=== PATIENT | female | born 1990 | race African-American/Black ===

== ENCOUNTER 2018-11-16 16:19 | Emergency (ER) | payer BC, OTHER ==
--- NOTE | 2018-11-16 16:26 | PDOC ---
Rapid Medical Evaluation Time Seen by Provider: 11/16/18 16:24 Medical Evaluation: Allergies Allergy/AdvReac Type Severity Reaction Status Date / Time No Known Allergies Allergy Verified 03/11/15 08:41 11/16/18 16:25 Patient c/o: 2 nd toe pain x 2 days, dropped can on toe Patient on brief exam: no edema or deformity , tender to dip joint of rt 2 nd toe Patient ordered for: toe xray patient to proceed to the ED Discharge Disposition - Diagnosis Toe pain Qualifiers: Laterality: right Qualified Code(s): M79.674 - Pain in right toe(s) - Discharge Dispostion Disposition: HOME Condition at time of disposition: Stable - Referrals Referrals: Boogie Leroy MD [Staff Physician] - Leonardo Emmanuel MD [Primary Care Provider] - - Patient Instructions Additional Instructions: Your x-ray today is negative. Wear hard sole shoe to keep your toe from bending. Take Tylenol or Motrin as directed by manufacturers instructions for pain. Return to the emergency department for new or worsening symptoms. Thank you very much for choosing us to provide your emergent health care needs. - Post Discharge Activity
[2018-11-16 16:33] VITALS: BP 124/68; PULSE 83; TEMP 98.7; BMI 35.4
--- NOTE | 2018-11-16 17:08 | PDOC ---
History of Present Illness - General Chief Complaint: Pain Stated Complaint: TOE INJURY R/FOOT Time Seen by Provider: 11/16/18 16:24 History Source: Patient Exam Limitations: No Limitations - History of Present Illness Initial Comments: 11/16/18 17:26 HISTORY OF PRESENT ILLNESS: This 28-year-old woman presents emergency department for evaluation of right second toe pain status post trauma 2 days prior. Patient reports she tried to pull a can of beans out of the cabinet when it fell approximately 6 feet striking her on the right second toe. She reports has been able to walk on it but has had increased pain over 2 days. Pain worsens with flexion and extension of the toes. No recent travel or sick contacts. PAST MEDICAL HISTORY: Denies past medical history SURGICAL HISTORY: Denies ALLERGIES: No known drug allergies REVIEW OF SYSTEMS General/Constitutional: Denies fever or chills. Denies weakness, weight change. HEENT: Denies change in vision. Denies ear pain or discharge. Denies sore throat. Cardiovascular: Denies chest pain or shortness of breath. Respiratory: Denies cough, wheezing, or hemoptysis. Gastrointestinal: Denies nausea, vomiting, diarrhea or constipation. Denies rectal bleeding. Genitourinary: Denies dysuria, frequency, or change in urination. Musculoskeletal: see HPI Skin and breasts: Denies rash or easy bruising. Neurologic: Denies headache, vertigo, loss of consciousness, or loss of sensation. Psychiatric: Denies depression or anxiety. Endocrine: Denies increased thirst. Denies abnormal weight change. Hematologic/Lymphatic: Denies anemia, easy bleeding, or history of blood clots. Allergic/Immunologic: Denies hives or skin allergy. Denies latex allergy. PHYSICAL EXAM General Appearance: Well-appearing, appropriately dressed. No apparent distress , no intoxication. Musculoskeletal/Extremities: Normal inspection. FROM of all extremities, normal capillary refill. Right second toe distal phalanx tender to palpation. No crepitus, deformity or step-off is present. Skin color is within normal limits. Neurovascularly intact. Integumentary: Appropriate color, dry, warm. No cyanosis, erythema, jaundice or rash Neurologic: sales assistants and salespersons II-XII intact. Fully oriented, alert. Appropriate mood/affect. Motor strength 5/5. No appreciable EOM palsy, facial droop or sensory deficit. Past History - Past Medical History Allergies/Adverse Reactions: Allergies Allergy/AdvReac Type Severity Reaction Status Date / Time No Known Allergies Allergy Verified 11/16/18 16:31 Home Medications: Ambulatory Orders Azithromycin 500 mg PO DAILY #5 tablet 03/11/15 Asthma: No Cancer: No Cardiac Disorders: No Diabetes: No HTN: No Seizures: No Thyroid Disease: No - Reproductive History Spontaneous : 2 - Suicide/Smoking/Psychosocial Hx Smoking Status: No Smoking History: Never smoked Have you smoked in the past 12 months: No Number of Cigarettes Smoked Daily: 0 Hx Alcohol Use: No Drug/Substance Use Hx: No Substance Use Type: None Hx Substance Use Treatment: No *Physical Exam - Vital Signs Last Vital Signs Temp Pulse Resp BP Pulse Ox 98.7 F 83 16 124/68 99 11/16/18 16:31 11/16/18 16:31 11/16/18 16:31 11/16/18 16:31 11/16/18 16:31 Medical Decision Making - Medical Decision Making 11/16/18 17:24 A/P: 28-year-old woman with atraumatic right second toe pain for 2 days X-rays performed by E-no acute fractures or dislocations present. Discharge home with hard sole shoe and podiatry follow-up *DC/Admit/Observation/Transfer Diagnosis at time of Disposition: Toe pain Qualifiers: Laterality: right Qualified Code(s): M79.674 - Pain in right toe(s) - Discharge Dispostion Disposition: HOME Condition at time of disposition: Stable Decision to Admit order: No - Referrals Referrals: Leonardo Emmanuel MD [Primary Care Provider] - Boogie Leroy MD [Staff Physician] - - Patient Instructions Additional Instructions: Your x-ray today is negative. Wear hard sole shoe to keep your toe from bending. Take Tylenol or Motrin as directed by manufacturers instructions for pain. Return to the emergency department for new or worsening symptoms. Thank you very much for choosing us to provide your emergent health care needs. - Post Discharge Activity
== END 2018-11-16 17:30 | disposition home or self-care (01) ==
LOC: JERFT 16:19
DX: M79.674 Pain in right toe(s) (principal)
CPT/HCPCS: 73660-TC-FY; 99281-25

== ENCOUNTER 2018-11-18 09:33 | Emergency (ER) | payer OTHER | END 2018-11-18 10:00 | disposition home or self-care (01) | LOC: JERFT 09:33 ==

== ENCOUNTER 2018-12-07 16:15 | Emergency (ER) | payer SELFPAY ==
[2018-12-07 16:29] VITALS: BP 132/84; PULSE 74; TEMP 98.1; BMI 33.8
[2018-12-07] MEDS ORDERED: IBUPROFEN 600 MG TABLET (FP) PO ONE ×2 (16:29→16:41)
--- NOTE | 2018-12-07 16:29 | PDOC ---
Rapid Medical Evaluation Time Seen by Provider: 12/07/18 16:26 Medical Evaluation: Allergies Allergy/AdvReac Type Severity Reaction Status Date / Time No Known Allergies Allergy Verified 11/18/18 09:36 12/07/18 16:26 I have performed a brief in-person evaluation of this patient. The patient presents with a chief complaint of: L thumb pain s/p accidentally slamming a draw closed against it today. She did not take any pain meds. I have ordered the following: L thumb xray. Motrin The patient will proceed to the ED for further evaluation. Discharge Disposition - Diagnosis Thumb injury Qualifiers: Encounter type: initial encounter Laterality: left Qualified Code(s): S69.92XA - Unspecified injury of left wrist, hand and finger(s), initial encounter - Referrals - Patient Instructions - Post Discharge Activity
--- NOTE | 2018-12-07 16:52 | PDOC ---
History of Present Illness - General Chief Complaint: Injury Stated Complaint: JAM FINGER Time Seen by Provider: 12/07/18 16:26 History Source: Patient Exam Limitations: Clinical Condition - History of Present Illness Initial Comments: 12/07/18 16:47 Patient with no significant past medical history presented with complaint of left thumb pain and broken fingernail status post left thumb getting caught up in a cabinet this afternoon. Patient report increased pain to proximal aspect of left thumb. Denies weakness to thumb or difficulty moving thumb. Patient did not take anything for pain. Denies previous injury to thumb or hand. Occurred: reports: just prior to arrival Past History - Past Medical History Allergies/Adverse Reactions: Allergies Allergy/AdvReac Type Severity Reaction Status Date / Time No Known Allergies Allergy Verified 12/07/18 16:27 Home Medications: Ambulatory Orders Ibuprofen 600 mg PO Q8H PRN #20 tablet 12/07/18 Asthma: No Cancer: No Cardiac Disorders: No COPD: No Diabetes: No HTN: No Seizures: No Thyroid Disease: No - Reproductive History Spontaneous : 2 - Psycho Social/Smoking Cessation Hx Smoking Status: No Smoking History: Never smoked Have you smoked in the past 12 months: No Number of Cigarettes Smoked Daily: 0 Hx Alcohol Use: No Drug/Substance Use Hx: No Substance Use Type: None Hx Substance Use Treatment: No Review of Systems - Review of Systems Able to Perform ROS?: Yes Is the patient limited [place] proficient: No Constitutional: No: Weakness HEENTM: No: Symptoms Reported Respiratory: No: Symptoms reported Cardiac (ROS): No: Symptoms Reported ABD/GI: No: Symptoms Reported Musculoskeletal: Yes: Symptoms Reported, See HPI, Joint Pain (left thumb), Muscle Pain (left proximal thumb) Integumentary: No: Symptoms Reported, Other (no swelling to thumb) Neurological: No: Symptoms reported, Numbness, Paresthesia, Tingling, Weakness All Other Systems: Reviewed and Negative *Physical Exam - Vital Signs Last Vital Signs Temp Pulse Resp BP Pulse Ox 98.1 F 74 16 132/84 99 12/07/18 16:28 12/07/18 16:28 12/07/18 16:28 12/07/18 16:28 12/07/18 16:28 - Physical Exam Comments: 12/07/18 16:50 GENERAL: Well developed, well nourished. Awake and alert in mild acute distress. PULMONARY: No evidence of respiratory distress. MUSCULOSKELETAL : Moderate tenderness over proximal phalanx of left thumb with mild tenderness to distal phalange of left thumb. No swelling to thumb or hand. No bony deformities. 5 out of 5 muscle strength to left thumb SKIN: Warm and dry. Normal capillary refill. No bruising, ecchymosis or swelling to left thumb or hand. NEUROLOGICAL: Alert, awake, appropriate. No motor deficits in the lower extremities. Gait is normal without ataxia. PSYCHIATRIC: Cooperative. Good eye contact. Appropriate mood and affect. General Appearance: Yes: Nourished, Appropriately Dressed. No: Apparent Distress ED Treatment Course - Medications Given in the ED: ED Medications Discontinued Medications Generic Name Dose Route Start Last Admin Trade Name Freq PRN Reason Stop Dose Admin Ibuprofen 600 mg 12/07/18 16:29 12/07/18 16:46 Motrin - PO 12/07/18 16:30 600 mg ONCE ONE Administration Medical Decision Making - Medical Decision Making 12/07/18 16:48 Patient with no significant past medical history presented with complaint of left thumb pain and broken fingernail status post left thumb getting caught up in a cabinet this afternoon. Patient report increased pain to proximal aspect of left thumb. Denies weakness to thumb or difficulty moving thumb. Patient did not take anything for pain. Denies previous injury to thumb or hand. Exam significant for moderate tenderness to proximal phalange of left thumb with horizontal laceration to artificial fingernail of left thumb. No nailbed injury. No thumb swelling, bruising or ecchymosis. 5 out of 5 strength to left thumb. No pain to rest of fingers. Symptoms likely finger contusion versus less likely finger fracture. Motrin 600 mg p.o. ordered from triage for pain. X-ray of left thumb ordered to rule out fracture 12/07/18 16:59 X-ray of left thumb shows no acute fracture or dislocation. Symptoms likely from contusion. Patient placed in prefabricated finger splint. Rx Motrin 600 mg as needed for pain. Patient stable for discharge Discharge - Discharge Information Problems reviewed: Yes Clinical Impression/Diagnosis: Thumb injury Qualifiers: Encounter type: initial encounter Laterality: left Qualified Code(s): S69.92XA - Unspecified injury of left wrist, hand and finger(s), initial encounter Condition: Stable Disposition: HOME - Admission No - Additional Discharge Information Prescriptions: Ibuprofen 600 mg PO Q8H PRN #20 tablet PRN Reason: pain - Follow up/Referral Referrals: Derrick Wilson MD [Staff Physician] - - Patient Discharge Instructions Patient Printed Discharge Instructions: DI for Contusion Additional Instructions: X-ray of left finger shows no acute fracture or dislocation. The pain is likely caused by finger contusion. Take prescribed Motrin as needed for pain. Use provided finger splint to help stabilize finger for the next 3 to 4 days. Follow-up referred to orthopedics if symptoms persist for more than 5 days - Post Discharge Activity
== END 2018-12-07 17:06 | disposition home or self-care (01) ==
LOC: JERFT 16:15
PROC: 2W3HX1Z Immobilization of Left Thumb using Splint (ICD-10-PCS; principal; 2018-12-07)
DX: S69.82XA Other specified injuries of left wrist, hand and finger(s), initial encounter (principal); W23.0XXA Caught, crushed, jammed, or pinched between moving objects, initial encounter; Y93.89 Activity, other specified; Y92.018 Other place in single-family (private) house as the place of occurrence of the external cause; Y99.8 Other external cause status
CPT/HCPCS: 73140-TC-LT-FY; 99282-25

== ENCOUNTER 2018-12-25 12:36 | Emergency (ER) | payer SELFPAY ==
--- NOTE | 2018-12-25 12:39 | PDOC ---
Rapid Medical Evaluation Time Seen by Provider: 12/25/18 12:37 Medical Evaluation: Allergies Allergy/AdvReac Type Severity Reaction Status Date / Time No Known Allergies Allergy Verified 12/07/18 16:27 12/25/18 12:37 CC: right ankle pain s/p inversion injury PE: No bony tenderness, deformity, crepitus or step-off noted. Ambulatory with normal gait. Orders: xray, ice Patient will proceed to ED for continued evaluation. Discharge Disposition - Diagnosis Right ankle injury - Referrals - Patient Instructions - Post Discharge Activity
[2018-12-25 12:44] VITALS: BP 119/75; PULSE 73; TEMP 97.9; BMI 34.0
--- NOTE | 2018-12-25 13:19 | PDOC ---
History of Present Illness - General Chief Complaint: Injury Stated Complaint: RT ANKLE INJURY Time Seen by Provider: 12/25/18 12:37 - History of Present Illness Initial Comments: 12/25/18 13:17 27-year-old female without comorbidities presents for evaluation of right ankle pain. She describes an inversion injury which occurred yesterday. Past History - Past Medical History Allergies/Adverse Reactions: Allergies Allergy/AdvReac Type Severity Reaction Status Date / Time No Known Allergies Allergy Verified 12/25/18 12:44 Home Medications: Ambulatory Orders Ibuprofen 600 mg PO Q8H PRN #20 tablet 12/07/18 Asthma: No Cancer: No Cardiac Disorders: No COPD: No Diabetes: No HTN: No Seizures: No Thyroid Disease: No - Reproductive History Spontaneous : 2 - Immunization History Immunization Up to Date: No - Psycho Social/Smoking Cessation Hx Smoking Status: No Smoking History: Never smoked Have you smoked in the past 12 months: No Number of Cigarettes Smoked Daily: 0 Information on smoking cessation initiated: No Hx Alcohol Use: No Drug/Substance Use Hx: No Substance Use Type: None Hx Substance Use Treatment: No Review of Systems - Review of Systems Musculoskeletal: Yes: Joint Pain *Physical Exam - Vital Signs Last Vital Signs Temp Pulse Resp BP Pulse Ox 97.9 F 73 16 119/75 98 12/25/18 12:40 12/25/18 12:40 12/25/18 12:40 12/25/18 12:40 12/25/18 12:40 - Physical Exam Comments: 12/25/18 13:18 Right ankle skin color and temperature normal range of motion is slightly limited. There is no tenderness about the proximal fibula or along its distal course. No tenderness about the medial lateral malleolus base of the fifth metatarsal or navicular. Mild tenderness over the ATFL without instability no gross sensorimotor deficits neurovascular intact. Medical Decision Making - Medical Decision Making 12/25/18 13:18 No fracture trauma or destructive process on right ankle and foot x-ray. Weight -bear as tolerated with crutches and Aircast. Follow-up with Ortho discussed use of Tylenol Motrin for pain. Patient is in agreement with the plan she understands. Discharge - Discharge Information Problems reviewed: Yes Clinical Impression/Diagnosis: Right ankle injury, Right ankle sprain Condition: Stable Disposition: HOME - Admission No - Follow up/Referral Referrals: Leonardo Emmanuel MD [Primary Care Provider] - Hernando Main DO [Staff Physician] - - Patient Discharge Instructions Additional Instructions: You may weight-bear as tolerated with use of crutches in the Aircast Tylenol as directed for pain. Return to the emergency room for worsening symptoms. And without fail please follow-up with orthopedic surgery in 1 to 2 days for further evaluation and treatment options. - Post Discharge Activity
== END 2018-12-25 13:29 | disposition home or self-care (01) ==
LOC: JERFT 12:36
PROC: 2W3QX1Z Immobilization of Right Lower Leg using Splint (ICD-10-PCS; principal; 2018-12-25)
DX: S93.401A Sprain of unspecified ligament of right ankle, initial encounter (principal); X50.1XXA Overexertion from prolonged static or awkward postures, initial encounter; Y93.89 Activity, other specified; Y92.89 Other specified places as the place of occurrence of the external cause; Y99.8 Other external cause status
CPT/HCPCS: 73610-TC-RT-FY; 73630-TC-RT-FY; 99281-25

== ENCOUNTER 2018-12-27 15:12 | Emergency (ER) | payer SELFPAY ==
--- NOTE | 2018-12-27 15:16 | PDOC ---
Rapid Medical Evaluation Time Seen by Provider: 12/27/18 15:14 Medical Evaluation: Allergies Allergy/AdvReac Type Severity Reaction Status Date / Time No Known Allergies Allergy Verified 12/25/18 12:44 12/27/18 15:15 CC: continued ankle pain to right ankle PE: no acute findings Orders: nothing Patient will proceed to ED for further evaluation. Discharge Disposition - Diagnosis Right ankle injury - Referrals - Patient Instructions - Post Discharge Activity
[2018-12-27 15:19] VITALS: BP 143/76; PULSE 71; TEMP 98.2; BMI 34.0
--- NOTE | 2018-12-27 15:49 | PDOC ---
History of Present Illness - General Chief Complaint: Pain Stated Complaint: PAIN Time Seen by Provider: 12/27/18 15:14 History Source: Patient Exam Limitations: No Limitations - History of Present Illness Initial Comments: 12/27/18 16:14 Chief complaint: Right foot pain Patient a 28-year-old healthy female who injured her ankle several days ago, was seen in the ER 2 days ago and had x-rays of the right ankle and foot which were negative. Patient was given an Aircast and crutches. Patient is no longer using crutches and came back to the ER for 2 reasons. First that she was having pain to the bottom of her foot by the heel and also because she called the orthopedist and they can see her till next week and she decided she needed reevaluation. Patient has been taking Motrin but did not take any today. GENERAL/CONSTITUTIONAL: No fever, weakness. dizziness HEAD, EYES, EARS, NOSE AND THROAT: No change in vision. No ear pain or discharge. No sore throat. CARDIOVASCULAR: No chest pain RESPIRATORY: No shortness of breath or cough GASTROINTESTINAL: No pain, nausea, vomiting, diarrhea or constipation GENITOURINARY: No dysuria MUSCULOSKELETAL: +right ankle, No neck or back pain SKIN: No rash NEUROLOGIC: No headache, vertigo, loss of consciousness, or loss of sensation. GENERAL: The patient is awake, alert, and fully oriented, in no acute distress. HEAD: Normal with no signs of trauma. EYES: Pupils equal, round and reactive to light, sclera anicteric, conjunctiva clear. ENT: pharynx: no erythema, no exudate, uvula midline NECK: supple CHEST: clear, nontender, rr ABD: soft, nontender BACK: no tenderness or signs of injury EXTREMITIES: Right ankle with no swelling, no tenderness, foot with no swelling , no right fifth metatarsal tenderness, minimal right heel tenderness, no swelling, erythema, bruising or signs of infection. Neurovascular intact. Rest of extremities, normal range of motion, no edema. NEUROLOGICAL: Normal speech, normal gait. SKIN: Warm, Dry Past History - Past Medical History Allergies/Adverse Reactions: Allergies Allergy/AdvReac Type Severity Reaction Status Date / Time No Known Allergies Allergy Verified 12/27/18 15:15 Home Medications: Ambulatory Orders Ibuprofen 600 mg PO Q8H PRN #20 tablet 12/07/18 Asthma: No Cancer: No Cardiac Disorders: No COPD: No Diabetes: No HTN: No Seizures: No Thyroid Disease: No - Reproductive History Spontaneous : 2 - Immunization History Immunization Up to Date: No - Psycho Social/Smoking Cessation Hx Smoking Status: No Smoking History: Never smoked Have you smoked in the past 12 months: No Number of Cigarettes Smoked Daily: 0 Hx Alcohol Use: No Drug/Substance Use Hx: No Substance Use Type: None Hx Substance Use Treatment: No *Physical Exam - Vital Signs Last Vital Signs Temp Pulse Resp BP Pulse Ox 98.2 F 71 16 143/76 97 12/27/18 15:16 12/27/18 15:16 12/27/18 15:16 12/27/18 15:16 12/27/18 15:16 Medical Decision Making - Medical Decision Making 12/27/18 16:16 Patient who was seen 2 days ago for right ankle injury, had x-rays of the right ankle and foot that were negative, was an Aircast and crutches. No longer using crutches but came back to the ER because she is having some right heel pain. Exam is non-concerning. Patient has not been using crutches, still wearing Aircast. She did not take any Motrin today. The orthopedist was unavailable till next week so she came back to the ER. There is no further acute issue. Discussed issues, findings, results, applicable medications and treatments and follow-up. All these were understood and all questions were answered Discharge - Discharge Information Problems reviewed: Yes Clinical Impression/Diagnosis: Right ankle injury Qualifiers: Encounter type: subsequent encounter Qualified Code(s): S99.911D - Unspecified injury of right ankle, subsequent encounter Condition: Stable Disposition: HOME - Admission No - Additional Discharge Information Prescription Drug Monitoring Program (I-STOP) results: I-STOP not reviewed - Follow up/Referral Referrals: Leonardo Emmanuel MD [Primary Care Provider] - Kurt Haas MD [Staff Physician] - - Patient Discharge Instructions Patient Printed Discharge Instructions: DI for Ankle Sprain Additional Instructions: Elevate, wear splint Motrin 600 mg every 6 hours for pain. Call the orthopedist today - Post Discharge Activity
== END 2018-12-27 15:51 | disposition home or self-care (01) ==
LOC: JER 15:12 → JERFT 15:12
DX: S93.401D Sprain of unspecified ligament of right ankle, subsequent encounter (principal); X50.9XXD Other and unspecified overexertion or strenuous movements or postures, subsequent encounter
CPT/HCPCS: 99281-25

== ENCOUNTER 2019-01-22 16:08 | Emergency (ER) | payer SELFPAY ==
[2019-01-22 16:11] VITALS: BP 130/76; PULSE 74; TEMP 98; BMI 34.0
--- NOTE | 2019-01-22 16:12 | PDOC ---
Rapid Medical Evaluation Time Seen by Provider: 01/22/19 16:11 Medical Evaluation: Allergies Allergy/AdvReac Type Severity Reaction Status Date / Time No Known Allergies Allergy Verified 12/27/18 15:15 01/22/19 16:11 I have performed a brief in-person evaluation of this patient. The patient presents with a chief complaint of: foot injury Pertinent physical exam findings:stable and in NAD, non-focal I have ordered the following: foot xray The patient will proceed to the ED for further evaluation.
--- NOTE | 2019-01-22 17:00 | PDOC ---
History of Present Illness - General Chief Complaint: Injury Stated Complaint: RT FOOT INJ Time Seen by Provider: 01/22/19 16:11 - History of Present Illness Initial Comments: 01/22/19 16:59 28-year-old female without comorbidities presents for evaluation of right ankle pain. She describes an inversion type injury which occurred today. Past History - Past Medical History Allergies/Adverse Reactions: Allergies Allergy/AdvReac Type Severity Reaction Status Date / Time No Known Allergies Allergy Verified 01/22/19 16:12 Home Medications: Ambulatory Orders Ibuprofen 600 mg PO Q8H PRN #20 tablet 12/07/18 Asthma: No Cancer: No Cardiac Disorders: No COPD: No Diabetes: No HTN: No Seizures: No Thyroid Disease: No - Reproductive History Spontaneous : 2 - Immunization History Immunization Up to Date: No - Psycho Social/Smoking Cessation Hx Smoking Status: No Smoking History: Never smoked Have you smoked in the past 12 months: No Number of Cigarettes Smoked Daily: 0 Hx Alcohol Use: No Drug/Substance Use Hx: No Substance Use Type: None Hx Substance Use Treatment: No Review of Systems - Review of Systems Musculoskeletal: Yes: Joint Pain *Physical Exam - Vital Signs Last Vital Signs Temp Pulse Resp BP Pulse Ox 98 F 74 18 130/76 98 01/22/19 16:09 01/22/19 16:09 01/22/19 16:09 01/22/19 16:09 01/22/19 16:09 - Physical Exam Comments: 01/22/19 16:59 Right ankle skin color and temperature normal range of motion is slightly limited. There is no tenderness about the proximal fibula or along its distal course. No tenderness about the medial lateral malleolus base of the fifth metatarsal or navicular. Mild tenderness over the ATFL without instability no gross sensorimotor deficits neurovascular intact. ED Treatment Course - RADIOLOGY Radiology Studies Ordered: Category Date Time Status ANKLE & FOOT-RIGHT* [RAD] Stat Radiology 01/22/19 16:41 Taken Medical Decision Making - Medical Decision Making 01/22/19 16:59 X-rays of the right ankle show no evidence of fracture trauma or destructive process. Right ankle sprain weight-bear as tolerated with Aircast and crutches follow-up with Ortho Discharge - Discharge Information Problems reviewed: Yes Clinical Impression/Diagnosis: Ankle sprain Condition: Stable Disposition: HOME - Admission No - Follow up/Referral Referrals: Hernando Main DO [Staff Physician] - - Patient Discharge Instructions Additional Instructions: You may weight-bear as tolerated with use of crutches in the Aircast Tylenol as directed for pain. Return to the emergency room for worsening symptoms. And without fail please follow-up with orthopedic surgery in 1 to 2 days for further evaluation and treatment options. - Post Discharge Activity
== END 2019-01-22 17:46 | disposition home or self-care (01) ==
LOC: JERFT 16:08
PROC: 2W3QX1Z Immobilization of Right Lower Leg using Splint (ICD-10-PCS; principal; 2019-01-22)
DX: S93.401A Sprain of unspecified ligament of right ankle, initial encounter (principal); X50.1XXA Overexertion from prolonged static or awkward postures, initial encounter; Y93.89 Activity, other specified; Y92.89 Other specified places as the place of occurrence of the external cause; Y99.8 Other external cause status
CPT/HCPCS: 73610-TC-RT-FY; 73630-TC-RT-FY; 99281-25

== ENCOUNTER 2019-02-07 21:47 | Emergency (ER) | payer SELFPAY ==
[2019-02-07 22:01] VITALS: BP 129/81; PULSE 77; TEMP 98.1; BMI 34.0
--- NOTE | 2019-02-07 23:17 | PDOC ---
History of Present Illness - General Chief Complaint: Lightheaded Stated Complaint: DIZZY Time Seen by Provider: 02/07/19 22:52 - History of Present Illness Initial Comments: 02/07/19 23:11 28 yo F , LMP 01/19/19, p/w dizziness. Patient reports that at 1745, she had acute onset of dizziness. Reports that when she has her eyes closed, it feels like the room is spinning, but with her eyes open, it feels like she is lightheaded. Has never had this before. Endorses nausea without vomiting. No family history of MIs or strokes. Does note that she has had 3 bowel movements since 9 pm, but reports that they have all been normal. Specifically denies CP, SOB, WATSON, constipation/diarrhea, fevers/chills. Past History - Past Medical History Allergies/Adverse Reactions: Allergies Allergy/AdvReac Type Severity Reaction Status Date / Time No Known Allergies Allergy Verified 01/22/19 16:12 Home Medications: Ambulatory Orders Ibuprofen 600 mg PO Q8H PRN #20 tablet 12/07/18 Asthma: No Cancer: No Cardiac Disorders: No COPD: No Diabetes: No HTN: No Seizures: No Thyroid Disease: No - Reproductive History Spontaneous : 2 - Immunization History Immunization Up to Date: No - Psycho Social/Smoking Cessation Hx Smoking Status: No Smoking History: Never smoked Have you smoked in the past 12 months: No Number of Cigarettes Smoked Daily: 0 Hx Alcohol Use: No Drug/Substance Use Hx: No Substance Use Type: None Hx Substance Use Treatment: No Review of Systems - Review of Systems Comments:: 02/07/19 23:34 GENERAL/CONSTITUTIONAL: No fever or chills. No weakness. HEAD, EYES, EARS, NOSE AND THROAT: No change in vision. No ear pain or discharge. No sore throat. CARDIOVASCULAR: No chest pain or shortness of breath. RESPIRATORY: No cough, wheezing, or hemoptysis. GASTROINTESTINAL: Nausea without vomiting. No diarrhea or constipation. GENITOURINARY: No dysuria, frequency, or change in urination. MUSCULOSKELETAL: No joint or muscle swelling or pain. No neck or back pain. SKIN: No rash NEUROLOGIC: Dizziness. No headache, loss of consciousness, or change in strength /sensation. ENDOCRINE: No increased thirst. No abnormal weight change. HEMATOLOGIC/LYMPHATIC: No anemia, easy bleeding, or history of blood clots. ALLERGIC/IMMUNOLOGIC: No hives or skin allergy *Physical Exam - Vital Signs Last Vital Signs Temp Pulse Resp BP Pulse Ox 98.1 F 77 19 129/81 94 L 02/07/19 21:59 02/07/19 21:59 02/07/19 21:59 02/07/19 21:59 02/07/19 21:59 - Physical Exam 02/07/19 23:35 Gen: well-developed, well-nourished, NAD Neuro: AAOX4, CN II-XII intact, FTN intact, EOMI, PERRLA, 5/5 strength, SILT. Heel to boone intact, negative Romberg's, negative [place]-Hallpike, normal gait. HEENT: atraumatic, normocephalic, dry mucous membranes Neck: trachea midline, supple CV: regular rate, regular rhythm, no murmurs, rubs, or gallops Pulm: CTA b/l, no wheezing Abd: soft, non-distended, non-tender MSK: full ROM, intact pulses Extr: no edema, no deformities Skin: warm, dry ED Treatment Course - LABORATORY CBC & Chemistry Diagram: 02/07/19 23:55 02/07/19 23:55 Medical Decision Making - Medical Decision Making 02/07/19 23:34 Concern for vertigo v UTI v . - CBC, CMP - UA/UC, upreg - 1L NS - Zofran - meclizine 25mg PO - reassess 02/08/19 01:14 UA with trace ketones, labs otherwise unremarkable. Patient feeling better but still a little lightheaded. Patient endorsing that she wants to go. Will give one more liter of normal saline, likely dc after. Discharge - Discharge Information Problems reviewed: Yes Clinical Impression/Diagnosis: Positional vertigo Condition: Improved Disposition: HOME - Admission No - Follow up/Referral Referrals: Leonardo Emmanuel MD [Primary Care Provider] - - Patient Discharge Instructions Patient Printed Discharge Instructions: DI for Vertigo Additional Instructions: You were seen with dizziness. Your labs and urine were indicative that you appeared dehydrated. Your symptoms improved with medication. Please remain hydrated. Follow up with your primary care doctor within one week. Return to the ED if you develop worsening symptoms. - Post Discharge Activity
[2019-02-07] MEDS ORDERED: ONDANSETRON 4 MG/2 ML VIAL IVPUSH ONE (23:18)
[2019-02-07] MEDS ORDERED: SODIUM CHLORIDE 0.9% 500 ML INFUS.BAG IV ONE (23:22)
[2019-02-07] MEDS ORDERED: MECLIZINE HCL 25 MG TABLET (FP) PO ONE (23:22)
[2019-02-08] MEDS ORDERED: MECLIZINE HCL 25 MG TABLET (FP) ONE (00:02)
[2019-02-08] MEDS ORDERED: ONDANSETRON 4 MG/2 ML VIAL ONE (00:03)
[2019-02-08 00:07] LABS: EOS % 8.1 % (0-4.5); HEMATOCRIT 34.8 % (32.4-45.2); HEMOGLOBIN 11.6 GM/dL (10.7-15.3); LYMPH % 36.3 % (8-40); MCH 28.3 pg (25.7-33.7); MCHC 33.4 g/dl (32.0-36.0); MEAN CELL VOLUME 84.8 fl (80-96); MEAN PLT VOLUME 8.7 fl (7.5-11.1); MONO % 10.7 % (3.8-10.2); NEUT % 43.9 % (42.8-82.8); PLATELET COUNT 278 K/MM3 (134-434); RBC 4.11 M/mm3 (3.60-5.2); RDW 14.8 % (11.6-15.6); WHITE BLOOD COUNT 6.9 K/mm3 (4.0-10.0)
[2019-02-08 00:11] LABS: PH,URINE 5.5 (5.0-8.0); URINE APPEARANCE CLEAR; URINE BILIRUBIN NEGATIVE (NEGATIVE); URINE COLOR YELLOW; URINE GLUCOSE (UA) NEGATIVE (NEGATIVE); URINE KETONE TRACE (NEGATIVE); URINE LEUK ESTERASE NEGATIVE (NEGATIVE); URINE NITRITE NEGATIVE (NEGATIVE); URINE PROTEIN NEGATIVE (NEGATIVE)
[2019-02-08 00:42] LABS: ALBUMIN 3.6 g/dl (3.4-5.0); BILIRUBIN,TOTAL 0.2 mg/dL (0.2-1); BLOOD UREA NITROGEN 12.2 mg/dL (7-18); CALCIUM 9.3 mg/dL (8.5-10.1); CREATININE 0.7 mg/dL (0.55-1.3); POTASSIUM 4.1 mmol/L (3.5-5.1); TOT PROT 7.3 g/dl (6.4-8.2)
[2019-02-08] MEDS ORDERED: SODIUM CHLORIDE 0.9% 1000 ML INFUS.BAG IV ONE (01:14)
--- NOTE | 2019-02-08 01:24 | PDOC ---
Documentation entered by Patrice Roman SCRIBE, acting as scribe for Lakeshia Archibald MD. Lakeshia Archibald MD: This documentation has been prepared by the Abel del cid Nirvannie, SCRIBE, under my direction and personally reviewed by me in its entirety. I confirm that the documentation accurately reflects all work, treatment, procedures, and medical decision making performed by me. Attending Attestation - Resident Resident Name: ZamudioAngelito dawkins - ED Attending Attestation I have performed the following: I have examined & evaluated the patient, The case was reviewed & discussed with the resident, I agree w/resident's findings & plan - HPI HPI: 02/07/19 23:44 The patient is a 28 year old female, with no significant past medical history, who presents to the emergency department with, sudden onset dizziness and lightheadedness. As per patient, at approximately 5:45PM her symptoms onset as dizziness when her eyes are closed and lightheadedness when eyes are open. She denies any recent falls or head/neck trauma. She denies recent fevers or chills. She denies recent nausea, vomit, diarrhea or constipation. She denies recent dysuria, frequency, urgency or hematuria. She denies recent chest pain or shortness of breath. Allergies: [facility] Primary Care Physician: Dr. Kaylah Emmanuel LMP: 01/1902/08/19 01:22 pt does report lots of seasonal allergies recently with sneezing and nasal congestion. - Physicial Exam PE: 02/08/19 01:23 awake alert lungs clear bilat heart rrr nomrg abd soft nt nd ext wwp no aaron.a no calf tenderness. alert oriented x 3. 5/5 all four ext. finger to nose intact. heel to boone intact. alt hand movement normal. gait normal. - Medical Decision Making 02/08/19 01:23 28 yo F h/o seasonal allegies. here with c/o vertigo and lightheaded. vertigo worse with movement. normal cerebellar exam. labs consistent with dhydration ua with ketones. given 2 L NS. improved with meclizine. will dc with vertigo. instructions, hydration and meclizine.
== END 2019-02-08 02:11 | disposition home or self-care (01) ==
LOC: JER 21:47
PROC: 3E033GC Introduction of Other Therapeutic Substance into Peripheral Vein, Percutaneous Approach (ICD-10-PCS; principal; 2019-02-07)
PROC: 3E0337Z Introduction of Electrolytic and Water Balance Substance into Peripheral Vein, Percutaneous Approach (ICD-10-PCS; 2019-02-07)
DX: H81.10 Benign paroxysmal vertigo, unspecified ear (principal)
CPT/HCPCS: 36415; 80053; 81003; 84703; 85025; 87086; 99283-25; J7030

== ENCOUNTER 2019-02-22 12:00 | Emergency (ER) | payer SELFPAY ==
[2019-02-22 12:17] VITALS: BP 126/77; PULSE 66; TEMP 98.4; BMI 34.0
[2019-02-22] MEDS ORDERED: IBUPROFEN 600 MG TABLET (FP) PO ONE ×2 (12:20→12:36)
--- NOTE | 2019-02-22 12:25 | PDOC ---
History of Present Illness - General Chief Complaint: Injury Stated Complaint: LEFT LEG PAIN Time Seen by Provider: 02/22/19 12:10 History Source: Patient Exam Limitations: No Limitations - History of Present Illness Initial Comments: 02/22/19 12:17 29 yo F presenting to the ER with a complaint of left leg pain Pt states she was in her usual state of health until last night when she slipped on ice, landing on her bottom She hit the left posterior calf on the edge of a curbe No head trauma No LOC Pt was able to get herself up to standing position and has been ambulatory Pt denies hip or knee pain Pt notes pain in the posterior calf with walking PMH: Denies PSH: Denies Meds: Denies ALL: NKDA Social: denies drug or tobacco use ROS: GENERAL/CONSTITUTIONAL: No: fever, chills, weakness, loss of appetite. HEAD, EYES, EARS, NOSE AND THROAT: No: change in vision, ear pain, discharge, sore throat, throat swelling. CARDIOVASCULAR: No: chest pain, lightheadedness, palpitations, syncope RESPIRATORY: No: cough, shortness of breath, wheezing, hemoptysis, stridor. GASTROINTESTINAL: No: nausea, vomiting, abdominal cramping, diarrhea, rectal bleeding, constipation. GENITOURINARY: No: dysuria, hematuria, frequency, urgency, flank pain. MUSCULOSKELETAL: Yes: left calf pain No: back pain, neck pain, joint pain, muscle swelling or pain SKIN: No: lesions, pallor, rash or easy bruising. NEUROLOGIC: No: headache, vertigo, paresthesias, weakness ENDOCRINE: No: unexplained weight gain or loss HEMATOLOGIC/LYMPHATIC: No: anemia, easy bleeding, swelling nodes My limited Exam GENERAL: The patient is in no acute distress. HEAD: Normal EYES: PERRLA, EOMI, sclera anicteric, conjunctiva clear. ENT: Ears normal, nares patent, oropharynx clear without exudates. Moist mucous membranes. NECK: Normal range of motion, supple LUNGS: Breath sounds equal, clear to auscultation bilaterally. No wheezes, and no crackles. HEART:Regular rate and rhythm, normal S1 and S2 without murmur, rub or gallop. ABDOMEN: Soft, nontender, normoactive bowel sounds. No guarding, no rebound. EXTREMITIES: Normal range of motion, no edema. NEUROLOGICAL: Cranial nerves II through XII grossly intact. Normal speech. No focal neurological deficits. MUSCULOSKELETAL: Back non-tender to palpation, pt has pain to palpation in the posterior superior calf No limitations in motion of the left knee Mild tenderness of the tibial plateau No swelling No limitations in ambulation due to pain Joes G's sign negative SKIN: no bruising noted 02/22/19 12:25 02/22/19 12:37 Past History - Past Medical History Allergies/Adverse Reactions: Allergies Allergy/AdvReac Type Severity Reaction Status Date / Time No Known Allergies Allergy Verified 02/22/19 12:01 Home Medications: Ambulatory Orders Methocarbamol [Robaxin -] 500 mg PO BID #21 tablet 02/22/19 Asthma: No Cancer: No Cardiac Disorders: No COPD: No Diabetes: No HTN: No Seizures: No Thyroid Disease: No - Reproductive History Spontaneous : 2 - Immunization History Immunization Up to Date: No - Psycho Social/Smoking Cessation Hx Smoking Status: No Smoking History: Never smoked Have you smoked in the past 12 months: No Number of Cigarettes Smoked Daily: 0 Information on smoking cessation initiated: No Hx Alcohol Use: No Drug/Substance Use Hx: No Substance Use Type: None Hx Substance Use Treatment: No *Physical Exam - Vital Signs Last Vital Signs Temp Pulse Resp BP Pulse Ox 98.4 F 66 20 126/77 98 02/22/19 12:01 02/22/19 12:01 02/22/19 12:01 02/22/19 12:01 02/22/19 12:01 Medical Decision Making - Medical Decision Making 02/22/19 12:36 Musculoskeletal pain s/p fall with trauma to the left calf Will do: Xray Motrin for pain Pt was unable to stay in the ER for xray because she got a call from her daughter's school stating that her daughter has a fever Pt does not obviously have a deformity Will ask pt to take motrin for pain Return to the ER for any other concerns or complaints Clincal Impression: Musculoskeletal pain, initial presentation Discharge - Discharge Information Problems reviewed: Yes Clinical Impression/Diagnosis: Musculoskeletal pain of left lower extremity Condition: Good Disposition: HOME - Admission No - Additional Discharge Information Prescriptions: Methocarbamol [Robaxin -] 500 mg PO BID #21 tablet - Follow up/Referral - Patient Discharge Instructions Patient Printed Discharge Instructions: DI for Calf Muscle Strain, DI for Musculoskeletal Pain Additional Instructions: Ms. Golden Thank you for coming in to the ER today Your x ray appears normal It appears that you have some muscle injury from your fall Try taking motrin 600mg every 8 hours for pain I have also ordered you for a muscle relaxant Please return to the ER for any other concerns or complaints - Post Discharge Activity Work/Back to School Note: Back to Work
== END 2019-02-22 13:00 | disposition home or self-care (01) ==
LOC: FER 12:00
DX: M79.605 Pain in left leg (principal); W01.0XXA Fall on same level from slipping, tripping and stumbling without subsequent striking against object, initial encounter; Y93.9 Activity, unspecified; Y92.9 Unspecified place or not applicable
CPT/HCPCS: 99282-25

== ENCOUNTER 2019-03-26 08:15 | Emergency (ER) | payer OTHER ==
[2019-03-26 08:24] VITALS: BP 128/80; PULSE 92; TEMP 99.3; BMI 32.5
[2019-03-26] MEDS ORDERED: DEXAMETHASONE LIQUID 0.5 MG/5 ML PO ONE (09:32)
[2019-03-26] MEDS ORDERED: KETOROLAC TROMETHAMINE 30 MG/1 ML VIAL IM ONE (09:32)
--- NOTE | 2019-03-26 09:35 | PDOC ---
History of Present Illness - General Chief Complaint: Cold Symptoms Stated Complaint: COLD SYMPTOMS Time Seen by Provider: 03/26/19 08:59 History Source: Patient Exam Limitations: No Limitations - History of Present Illness Initial Comments: 03/26/19 10:56 29-year-old female denies past medical history presents complaining of sore throat, subjective fever, chills, body aches, dry cough x48 hours. Denies nausea, vomiting, diarrhea, abdominal pain, back pain, urinary symptoms or any other complaint. Has been taking Mucinex and TheraFlu 1-2 times daily. Not taken any medication this morning. ROS: GENERAL/CONSTITUTIONAL: Subjective fever, chills, denies weakness, dizziness HEAD, EYES, EARS, NOSE AND THROAT: Sore throat, no changes in vision, No ear pain CARDIOVASCULAR: No chest pain RESPIRATORY: No shortness of breath or cough GASTROINTESTINAL: No pain, nausea, vomiting, diarrhea or constipation GENITOURINARY: No dysuria MUSCULOSKELETAL: No neck or back pain SKIN: No rash NEUROLOGIC: No headache, vertigo, loss of consciousness, or loss of sensation Is this a multiple visit Asthma Patient?: No Past History - Past Medical History Allergies/Adverse Reactions: Allergies Allergy/AdvReac Type Severity Reaction Status Date / Time No Known Allergies Allergy Verified 02/22/19 12:01 Home Medications: Ambulatory Orders Amoxicillin - [Amoxicillin 500mg Capsule -] 500 mg PO TID #21 capsule 03/26/19 Anemia: Yes Asthma: No Cancer: No Cardiac Disorders: No COPD: No DVT: No Diabetes: No HTN: No Seizures: No Thyroid Disease: No - Reproductive History (#): 4 Para: 1 Cervical CA: No Dysfunctional Uterine Bleeding: No Ectopic : No Endometrial CA: No Polycystic Ovaries: No Therapeutic (s) & number: Yes Tubal Ligation: No Spontaneous : 1 - Immunization History Immunization Up to Date: Yes - Psycho Social/Smoking Cessation Hx Smoking Status: No Smoking History: Never smoked Have you smoked in the past 12 months: No Number of Cigarettes Smoked Daily: 0 Information on smoking cessation initiated: No Hx Alcohol Use: No Drug/Substance Use Hx: No Substance Use Type: None Hx Substance Use Treatment: No *Physical Exam - Vital Signs Last Vital Signs Temp Pulse Resp BP Pulse Ox 99.3 F 92 H 18 128/80 100 03/26/19 08:21 03/26/19 08:21 03/26/19 08:21 03/26/19 08:21 03/26/19 08:21 Medical Decision Making - Medical Decision Making 03/26/19 10:57 29-year-old female denies past medical history complaining of subjective fever, chills, cough, sore throat, body aches x2 days. Flu swab negative Strep swab negative IM Toradol 30 mg and p.o. Decadron given Patient feels better after medications Will treat with antibiotic Note for work provided Return precautions Advised PMD follow-up Discharge - Discharge Information Problems reviewed: Yes Clinical Impression/Diagnosis: Pharyngitis Qualifiers: Pharyngitis/tonsillitis etiology: unspecified etiology Qualified Code(s): J02.9 - Acute pharyngitis, unspecified Condition: Stable Disposition: HOME - Admission No - Follow up/Referral Referrals: Leonardo Emmanuel MD [Primary Care Provider] - - Patient Discharge Instructions Additional Instructions: Remain hydrated, rest Take amoxicillin as directed Return to ED if difficulty speaking, difficulty swallowing, neck swelling, worsening pain, fever, chills or any worsening symptoms Follow-up with your doctor within 1 week Note for work provided - Post Discharge Activity Work/Back to School Note: Back to Work
[2019-03-26] MEDS ORDERED: KETOROLAC TROMETHAMINE 30 MG/1 ML VIAL ONE (09:41)
[2019-03-26] MEDS ORDERED: DEXAMETHASONE SOD PHOSPHATE 10 MG/1 ML VIAL ONE (09:41)
== END 2019-03-26 11:12 | disposition home or self-care (01) ==
LOC: JERFT 08:15
PROC: 3E0233Z Introduction of Anti-inflammatory into Muscle, Percutaneous Approach (ICD-10-PCS; principal; 2019-03-26)
DX: J02.9 Acute pharyngitis, unspecified (principal)
CPT/HCPCS: 87070; 87804; 87880; 96372; 99281-25

== ENCOUNTER 2019-04-04 09:44 | Emergency (ER) | payer OTHER ==
[2019-04-04 09:56] VITALS: BP 125/67; PULSE 67; TEMP 98.1; BMI 32.5
--- NOTE | 2019-04-04 10:18 | PDOC ---
History of Present Illness - General Chief Complaint: Cold Symptoms Stated Complaint: COLD SYMPTOMS Time Seen by Provider: 04/04/19 09:59 History Source: Patient Exam Limitations: No Limitations Past History - Past Medical History Allergies/Adverse Reactions: Allergies Allergy/AdvReac Type Severity Reaction Status Date / Time No Known Allergies Allergy Verified 04/04/19 09:53 Home Medications: Ambulatory Orders NK [No Known Home Medication] 04/04/19 Anemia: Yes Asthma: No Cancer: No Cardiac Disorders: No COPD: No DVT: No Diabetes: No HTN: No Seizures: No Thyroid Disease: No - Reproductive History (#): 4 Para: 1 Cervical CA: No Dysfunctional Uterine Bleeding: No Ectopic : No Endometrial CA: No Polycystic Ovaries: No Therapeutic (s) & number: Yes Tubal Ligation: No Spontaneous : 1 - Immunization History Immunization Up to Date: Yes - Psycho Social/Smoking Cessation Hx Smoking Status: No Smoking History: Unknown if ever smoked Have you smoked in the past 12 months: No Number of Cigarettes Smoked Daily: 0 Hx Alcohol Use: No Drug/Substance Use Hx: No Substance Use Type: None Hx Substance Use Treatment: No Respiratory Specific PMHX - Complaint Specific PMHX Hx Bronchitis: No Hx Pneumonia: No Hx Pulmonary Embolus: No Hx TB (Tuberculosis): No *Physical Exam - Vital Signs Last Vital Signs Temp Pulse Resp BP Pulse Ox 98.1 F 67 18 125/67 96 04/04/19 09:47 04/04/19 09:47 04/04/19 09:47 04/04/19 09:47 04/04/19 09:47 - Physical Exam General Appearance: No: Apparent Distress HEENT: positive: TMs Normal, Pharynx Normal, Nasal Congestion. negative: Muffled/Hoarse voice, Pharyngeal Erythema, Tonsillar Exudate, Tonsillar Erythema , Rhinorrhea, Sinus Tenderness Respiratory/Chest: positive: Lungs Clear, Normal Breath Sounds. negative: Respiratory Distress Cardiovascular: positive: Regular Rhythm, Regular Rate, S1, S2. negative: Murmur Gastrointestinal/Abdominal: positive: Normal Bowel Sounds, Soft. negative: Tender, Distended, Guarding, Rebound Integumentary: positive: Normal Color Neurologic: positive: Alert Medical Decision Making - Medical Decision Making 29 y/o F with no sig pmh presents with URI sxs x 2 days. Was seen last week for similar sxs, tested negative for flu and rapid strep and sent home on Amoxicillin. Patient states she only took abx for 4 days and then stopped it as she was feeling fine. However, later her daughter got sick which also made her feel a bit sick, though not like last week. States with mild sore throat, congestion and headache. Denies fever, sob, cp, abd pain, n/v/d. Did not take any meds for her sxs. PE unremarkable Likely viral syndrome Stable for dc 04/04/19 10:14 Discharge - Discharge Information Problems reviewed: Yes Clinical Impression/Diagnosis: Viral syndrome Condition: Stable Disposition: HOME - Admission No - Additional Discharge Information Prescription Drug Monitoring Program (I-STOP) results: I-STOP not reviewed - Follow up/Referral - Patient Discharge Instructions Patient Printed Discharge Instructions: DI for Viral Upper Respiratory Infection -- Adult Additional Instructions: Thank you for choosing [facility]. It was a pleasure taking care of you. You have viral infection Alternate between Tylenol every 4 and Motrin every 6 hours as needed for symptoms Recommend rest and hydration Follow-up with your doctor in 2 days Return to the Emergency Department if your symptoms worsen or persist or have other concerning symptoms. - Post Discharge Activity
== END 2019-04-04 10:27 | disposition home or self-care (01) ==
LOC: JERFT 09:44
DX: J06.9 Acute upper respiratory infection, unspecified (principal); B97.89 Other viral agents as the cause of diseases classified elsewhere; Z86.2 Personal history of diseases of the blood and blood-forming organs and certain disorders involving the immune mechanism
CPT/HCPCS: 99282-25

== ENCOUNTER 2020-03-28 09:16 | Emergency (ER) | payer OTHER ==
[2020-03-28 09:35] VITALS: BP 134/68; PULSE 68; TEMP 98.5; BMI 36.9
== END 2020-03-28 10:21 | disposition home or self-care (01) ==
LOC: JER 09:16
DX: H72.91 Unspecified perforation of tympanic membrane, right ear (principal)
CPT/HCPCS: 99282-25

== ENCOUNTER 2021-01-07 08:04 | Emergency (ER) | payer OTHER ==
[2021-01-07 08:10] VITALS: TEMP 98.2; BMI 36.9
[2021-01-07] MEDS ORDERED: LIDOCAINE 5% TOPICAL PATCH TP ONE (09:30)
[2021-01-07] MEDS ORDERED: ACETAMINOPHEN 325 MG TABLET (FP) PO ONE (09:30)
[2021-01-07] MEDS ORDERED: ACETAMINOPHEN 325 MG TABLET (FP) ONE (09:37)
[2021-01-07] MEDS ORDERED: LIDOCAINE 5% TOPICAL PATCH ONE (09:37)
[2021-01-07 10:08] LABS: BASO % 1.2 % (0-2.0); HEMATOCRIT 32.5 % (32.4-45.2); HEMOGLOBIN 10.6 GM/dL (10.7-15.3); MCHC 32.7 g/dl (32.0-36.0); MEAN CELL VOLUME 76.4 fl (80-96); MEAN PLT VOLUME 8.3 fl (7.5-11.1); MONO % 9.5 % (3.8-10.2); NEUT % 48.3 % (42.8-82.8); PH,URINE 5.5 (5.0-8.0); PLATELET COUNT 322 10^3/uL (134-434); RBC 4.25 M/mm3 (3.60-5.2); RDW 17.2 % (11.6-15.6); URINE APPEARANCE CLEAR; URINE BILIRUBIN NEGATIVE (NEGATIVE); URINE COLOR YELLOW; URINE GLUCOSE (UA) NEGATIVE (NEGATIVE); URINE KETONE NEGATIVE (NEGATIVE); URINE LEUK ESTERASE NEGATIVE (NEGATIVE); URINE NITRITE NEGATIVE (NEGATIVE); URINE PROTEIN NEGATIVE (NEGATIVE); URINE UROBILINOGEN 0.2 mg/dL (0.2-1.0); WHITE BLOOD COUNT 5.7 K/mm3 (4.0-10.0)
[2021-01-07 11:20] LABS: ALBUMIN 3.8 g/dl (3.4-5.0); ALK PHOS 81 U/L (45-117); ANION GAP 7 MMOL/L (8-16); BILIRUBIN,TOTAL 0.3 mg/dL (0.2-1); BLOOD UREA NITROGEN 8.8 mg/dL (7-18); CALCIUM 10.5 mg/dL (8.5-10.1); CHLORIDE 105 mmol/L (98-107); CO2 24 mmol/L (21-32); CREATININE 0.8 mg/dL (0.55-1.3); GLUCOSE,RANDOM 114 mg/dL (74-106); SGOT/AST 19 U/L (15-37); SGPT/ALT 22 U/L (13-61); SODIUM 136 mmol/L (136-145); TOT PROT 8.2 g/dl (6.4-8.2)
[2021-01-07 11:49] VITALS: BP 139/83; PULSE 78
[2021-01-07] MEDS ORDERED: LIDOCAINE PATCH REMOVAL MC ONE (22:00)
== END 2021-01-07 11:47 | disposition home or self-care (01) ==
LOC: JER 08:04
DX: R07.89 Other chest pain (principal); N64.4 Mastodynia
CPT/HCPCS: 36415; 71046-TC-FY; 80053; 81003; 84484; 84703; 85025; 87086; 93005; 93010; 99285-25

== ENCOUNTER 2024-01-08 16:49 | Emergency (ER) | payer OTHER ==
[2024-01-08 16:55] VITALS: BP 133/79; PULSE 82; RESP 18; TEMP 98.3; BMI 36.9
[2024-01-08] MEDS ORDERED: NAPROXEN 500 MG TABLET ONE (18:17)
[2024-01-08] MEDS: NAPROXEN 500 MG TABLET PO ONE (18:21)
== END 2024-01-08 18:22 | disposition home or self-care (01) ==
LOC: JERFT 16:49
DX: R59.0 Localized enlarged lymph nodes (principal); M54.2 Cervicalgia
CPT/HCPCS: 99283-25